=== PATIENT | male | born 1930 | race Caucasian/White ===

== ENCOUNTER 2017-09-03 15:05 | Outpatient (CLI) | payer MEDICARE, OTHER ==
--- NOTE | 2017-09-03 16:27 | RAD ---
CERVICAL SPINE AP AND LATERAL STANDARD 09/03/17 HISTORY: Neck pain. Comparison radiographs 03/28/14. FINDINGS: Open mouth odontoid view is normal. C1-2 articulation is normal. 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 Large anterior osteophytes are present. Uncinat e process hypertrophy is present. No displaced fracture or malalignment is appreciated. IMPRESSION: Extensive spondylosis. No displaced fracture or malalignment. POS: [facility]
--- NOTE | 2017-09-03 16:28 | RAD ---
THORACIC SPINE THREE VIEW 09/03/17 HISTORY: Neck pain. COMPARISON: None. FINDINGS: Large anterior filling osteophytes of the thoracic spine. There is chronic appearing height loss lowe r thoracic spine. No acute fracture or malalignment is appreciated. IMPRESSION: Chronic changes. No displaced fracture or malalignment. POS: [facility]
== END 2017-09-03 15:06 | disposition home or self-care (01) ==
LOC: RAD 15:05
PROVIDERS: ATTEND Internal Medicine
DX: M54.2 Cervicalgia (principal)
CPT/HCPCS: 72040; 72072

== ENCOUNTER 2018-11-08 08:57 | Outpatient (CLI) | payer MEDICARE, OTHER ==
--- NOTE | 2018-11-08 10:31 | CT ---
CT HEAD WITHOUT CONTRAST: 11/08/2018 HISTORY: Headaches. COMPARISON: None. FINDINGS: There is wall thickening and mucosal thickening of the sphenoid sinus on the right, suggesting chroni c sphenoid sinusitis. The imaged paranasal sinuses and mastoid air cells appear otherwise unremarkab le. There is no displaced calvarial fracture, intracranial hemorrhage, midline shift, or mass effect . Mild cerebral volume loss. IMPRESSION: Findings suggesting chronic sphenoid sinus disease. This could be better assessed via MRI if clinica lly warranted. No intracranial hemorrhage, midline shift, or mass effect. POS: [facility]
== END 2018-11-08 08:58 | disposition home or self-care (01) ==
LOC: BICCT 08:57
PROVIDERS: ATTEND Internal Medicine
DX: R51 Headache (principal)
CPT/HCPCS: 70450

== ENCOUNTER 2019-01-25 09:38 | Outpatient (CLI) | payer MEDICARE, OTHER ==
[~2019-01-25 09:38] MED LIST: Gadobenate Dimeglumine 529 MG/1 ML (20ML VIAL) ONE
--- NOTE | 2019-01-25 11:37 | MRI ---
MRI ORBITS AND BRAIN WITH AND WITHOUT CONTRAST: Date: 01/25/19 HISTORY: 88-year-old male with H57.10, orbital pain left side. Sphenoid sinus disease. 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 There is no adjacent vasogeni c edema in the temporal lobe. There are scattered mild to moderate chronic ischemic white matter changes in the wen radiata and centrum semiovale. No major intra-axial signal abnormality otherwise. There is no obstructive hydrocephalus. No restricted diffusion in the brain. No suprasellar mass. No impingement upon optic chiasm. Clivus has normal bone marrow signal. There is diffuse moderate mucosa l thickening of a dominant right sphenoid air cell. This dominant air cell occupies almost the entire region of the body of the sphenoid bone. The hypoplastic left sphenoid air cell is at the left anter olateral corner of the sphenoid bone and is clear. Review of the CT demonstrates osseous mural thicke christine of the [place] of the dominant sphenoid air cell indicating chronic, longstanding sinusitis. On th is MRI, there is no abnormal enhancement of the bone. There is circumferential enhancement of the thi ckened mucosa of the dominant sphenoid air cell. No occlusion of the sphenoid ostium is identified fo r the dominant right air cell. No evidence of neoplastic tumor mass involving the sphenoethmoidal rec ess region. No significant mucosal thickening of the ethmoid air cells bilaterally, which appear to b e grossly clear. The bilateral maxillary sinuses are grossly clear. 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 No abnormal intra-axial enhancement. The bilateral extraocular muscles are symmetrical and normal in size. No abnormal intraorbital enhanc ement, edema, or mass. Optic nerves appear normal, with no abnormal signal or abnormal enhancement. C avernous sinuses are bilaterally normal. Absent lenses, but otherwise normal globes.r IMPRESSION: 1. Mild to moderate chronic ischemic white matter changes of the brain, typical for age. 2. 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 3. Normal appearance of the orbits. 4. Longstanding chronic sinusitis of sphenoid sinus, involving the dominant right sphenoid air cell. No evidence of associated neoplasm. POS: [facility]
== END 2019-01-25 09:39 | disposition home or self-care (01) ==
LOC: SCSMRI 09:38
PROVIDERS: ATTEND Psychiatry & Neurology Neurology
DX: H57.10 Ocular pain, unspecified eye (principal); J32.3 Chronic sphenoidal sinusitis; I67.82 Cerebral ischemia
CPT/HCPCS: 70543; 82565